=== PATIENT | male | born 1950 | race Caucasian/White ===

== ENCOUNTER 2019-02-07 17:48 | Inpatient (IN) | payer BC, OTHER ==
[~2019-02-07] VITALS: Ht 185.4 cm; Wt 79.8 kg
--- NOTE | 2019-02-07 17:48 | NUR ---
PT BIB [facility], SYNCOPAL EPISODE WHILE PLAYING ROCKETBALL AT A GYM, C/O BACK PAIN,STS, HE MAY HAVE LANDED ON HIS BACK, PT IS AAOX4, NOT IN RESPIRATORY DISTRESS, HOOKED TO MONITOR, KEPT RESTED AND COMFORTABLE, WILL CONTINUE TO MONITOR.
--- NOTE | 2019-02-07 18:00 | NUR ---
SEEN AND EXAMINED BY DR. MONIQUE.
[2019-02-07] MEDS ORDERED: FENTANYL PF 100MCG/2ML AMPUL ONE ×2 (18:18→18:43)
--- NOTE | 2019-02-07 18:25 | NUR ---
ER PHLEB AT BEDSIDE FOR BLOOD DRAW.
[2019-02-07] MEDS ORDERED: IV NS 0.9% 500 ML BAG IV ONE (18:30)
[2019-02-07] MEDS ORDERED: IV NS 0.9% 1,000 ML BAG IV ONE (18:30)
[2019-02-07] MEDS ORDERED: FENTANYL PF 100MCG/2ML AMPUL IV ONE ×2 (18:30→19:00)
[2019-02-07 18:46] LABS: BASOPHILS % (AUTO) 0.3 % (0.0-2.0); EOSINOPHILS % (AUTO) 0.2 % (0.0-6.0); HEMATOCRIT 40 % (39-51); HEMOGLOBIN 13.4 g/dL (13.5-17.5); LYMPHOCYTES # (AUTO) 0.7 /CMM (0.8-4.8); LYMPHOCYTES % (AUTO) 8.3 % (20.0-44.0); MEAN CORPUSCULAR HGB CONC 34 g/dl (31.0-36.0); MEAN CORPUSCULAR VOLUME 98 fL (80-96); MONOCYTES # (AUTO) 0.7 /CMM (0.1-1.30); MONOCYTES % (AUTO) 7.5 % (2.0-12.0); NEUTROPHILS # (AUTO) 7.3 /CMM (1.8-8.9); NEUTROPHILS % (AUTO) 83.7 % (43.0-81.0); PLATELET COUNT (AUTO) 145 /CMM (150-450); RED BLOOD CELL COUNT(AUTO) 4.07 MIL/uL (4.5-6.0); WHITE BLOOD COUNT (AUTO) 8.8 K/uL (4.3-11.0)
[2019-02-07 18:53] LABS: CALCIUM, SERUM 7.6 mg/dL (8.5-10.1); CARBON DIOXIDE 23 mmol/L (21-32); CHLORIDE 106 mmol/L (98-107); CREATININE 1.2 mg/dL (0.6-1.3); GLUCOSE 133 mg/dL (74-106); POTASSIUM 3.9 mmol/L (3.5-5.1); SODIUM SERUM 138 mmol/L (136-145); UREA NITROGEN, BLOOD 15 mg/dL (7-18)
--- NOTE | 2019-02-07 19:27 | NUR ---
REPORT GIVEN TO JENNIFER BARKSADLE FOR FERNANDO.
[2019-02-07] MEDS ORDERED: MORPHINE SULFATE INJ 2 MG/ML DISP.SYRIN IV ONE (21:00)
[2019-02-07] MEDS ORDERED: MORPHINE SULFATE INJ 4 MG/ML DISP.SYRIN ONE (21:07)
--- NOTE | 2019-02-07 21:55 | NUR ---
REPORT GIVEN TO JENNIFER LINDO FOR FERNANDO
[2019-02-07 22:15] VITALS: BP 123/57
--- NOTE | 2019-02-07 22:15 | NUR ---
admission note rn patient admitted from er .patient being admitted for syncope telemetry to dr. castillo rn 312 bed 1. patient in no apparent distress. tele applied patient is in sr. pt also had lumbar fracture per xray report. patient reports having back pain when he moves 6/10 but states tolerable when he lays still. reviewed pain managment plan with patient. bed dlw locked patient in no apparent distress. verbalized understanding to call for assistance and verbalized understanding of how to use call light. will cont to monitor.
[2019-02-07 22:35] VITALS: BP 123/57
[2019-02-07] MEDS ORDERED: MAGNESIUM HYDROXIDE 30 ML UDC PO PRN (23:00)
[2019-02-07] MEDS ORDERED: ACETAMINOPHEN 325 MG TABLET PO PRN (23:00)
[2019-02-07] MEDS ORDERED: ZOLPIDEM TARTRATE 5 MG TABLET PO PRN (23:00)
[2019-02-07] MEDS ORDERED: TEMAZEPAM 7.5 MG CAPSULE PO PRN (23:00)
[2019-02-07] MEDS ORDERED: MAG HYDROX/AL HYDROX/SIMETH 30 ML UDC PO PRN (23:00)
[2019-02-07] MEDS ORDERED: Z GUARD REMEDY 2 OZ OINT TP PRN (23:00)
[2019-02-07] MEDS: ENOXAPARIN SODIUM 40 MG/0.4 ML DISP.SYRIN SQ SCH (23:11)
--- NOTE | 2019-02-07 23:46 | NUR ---
mri screening form. attempted to perform mri screening form with patient. patient states , "I would rather do that tomorrow am when i have a more sound mind. i just want to rest right now." will follow up.
[2019-02-08 00:23] VITALS: BP 120/65
--- NOTE | 2019-02-08 01:55 | NUR ---
lumbar brace lumbar brace is not available at this time per charge nurse raghav whom states he spoke with housekeeper home. will endorse to day shift.
[2019-02-08 04:00] VITALS: BP 125/60
[2019-02-08] MEDS: HYDROCODONE/APAP 5/325MG 1 EACH TABLET PO PRN ×2 (05:17→17:40)
[2019-02-08 06:33] LABS: BASOPHILS % (AUTO) 0.1 % (0.0-2.0); HEMATOCRIT 37 % (39-51); HEMOGLOBIN 12.6 g/dL (13.5-17.5); LYMPHOCYTES # (AUTO) 0.6 /CMM (0.8-4.8); LYMPHOCYTES % (AUTO) 8.2 % (20.0-44.0); MEAN CORPUSCULAR HGB CONC 34 g/dl (31.0-36.0); MEAN CORPUSCULAR VOLUME 96 fL (80-96); MONOCYTES # (AUTO) 0.7 /CMM (0.1-1.30); MONOCYTES % (AUTO) 9.6 % (2.0-12.0); NEUTROPHILS # (AUTO) 6.2 /CMM (1.8-8.9); NEUTROPHILS % (AUTO) 82.1 % (43.0-81.0); PLATELET COUNT (AUTO) 133 /CMM (150-450); RED BLOOD CELL COUNT(AUTO) 3.87 MIL/uL (4.5-6.0); WHITE BLOOD COUNT (AUTO) 7.5 K/uL (4.3-11.0)
--- NOTE | 2019-02-08 06:44 | NUR ---
TREATMENT PLANT MECHANIC CLOSING NOTES PT REMAINS IN BED, SLEEPING INTERMITANTLY. PT ON RA WITH NO RESPIRATORY DISTRESS NOTED DENIES SOB. ON TELEMONITORING WITH SR ON MONITOR.PATIENT LYING ON BACK WITH BED FLAT. REPORTS HE IS SEMI COMFORTABLE. REVIEWED POC PATIENT TO BE FITTED WITH LUMBAR BRACE TODAY WILL ENDORSE TO NEXT SHIFT.IV HEPLOCKED TO LEFT WRIST FLUSHES NO S/S OF COMPLICATIONS. PT USING URINAL WITH BARBARA URNINE PRODUCTION. PT'S BED KEPT IN LOWEST, LOCKED POSITION WITH SR X3. CALL LIGHT IN REACH.
[2019-02-08 06:51] LABS: ALBUMIN 2.9 g/dL (3.4-5.0); CALCIUM, SERUM 7.8 mg/dL (8.5-10.1); CREATININE 1.1 mg/dL (0.6-1.3); MAGNESIUM 1.7 mg/dL (1.8-2.4); PHOSPHORUS 2.9 mg/dL (2.5-4.9); POTASSIUM 4.3 mmol/L (3.5-5.1); TOTAL PROTEIN, SERUM 5.7 g/dL (6.4-8.2)
--- NOTE | 2019-02-08 07:28 | NUR ---
SPOOLER RUBBER STRAND OPENING NOTES Patient received on room air, no sob noted. Patient denies pain at this time. Patient remains a/o x4. Resting comfortably. Bed at the lowest setting, call light within reach.
[2019-02-08] MEDS: Magnesium 1GM/D5W 100ML PREMIX 100 ML IV SCH ×2 (07:55→08:54)
[2019-02-08 08:00] VITALS: BP 119/60
[2019-02-08] MEDS: ENOXAPARIN SODIUM 40 MG/0.4 ML DISP.SYRIN SQ SCH (10:45)
[2019-02-08 12:00] VITALS: BP 130/70
[2019-02-08 16:00] VITALS: BP 117/73
[2019-02-08] MEDS: MORPHINE SULFATE INJ 2 MG/ML DISP.SYRIN IV PRN (16:18)
[2019-02-08] MEDS: ONDANSETRON HCL/PF 4 MG/2 ML VIAL IVP PRN (16:19)
[2019-02-08] MEDS ORDERED: HEPARIN SODIUM, PORCINE 5000 UNITS/1 ML VIAL IV ONE (17:30)
[2019-02-08] MEDS: HEPARIN INFUSION/D5W 500 ML IV PRN (18:18)
--- NOTE | 2019-02-08 18:34 | NUR ---
AERIAL APPLICATOR PILOT CLOSING NOTES Patient remains on room air, no sob noted. Patient states that his pain is controlled with norco, and morphine. Patient is currently on a heparin drip that started at 1825, PTT to be redrawn at 0025. PTT ordered for 0025. Patient is on 1450 units/kg that equates to 29 mL per hour. Calculations done with charge nurse, co signed the medications with the charge nurse as well. Left wrist 18 gauge remains patent, unobstructed. Bed at the lowest setting, call light within reach.
--- NOTE | 2019-02-08 19:21 | NUR ---
RN NOTES: RECEIVED ENDORSEMENT FROM , PATIENT IS LYING COMFORTABLY IN BED, A/O4, COOPERATIVE AND VERY PLEASANT PERSONALITY, CONTINENT B/B, USING THE URINAL, ABLE TO MAKE NEEDS KNOWN. IV CANNULA INTACT IN LW GAUGE#18, HEPARIN INFUSION ONGOING 1450 UNIT/KG AT 29 ML/HR VIA INFUSION PUMP, DUE FOR PT/INR AT 0025,ON CLOSE WATCH AND OBSERVE FOR SIGN OF BLEEDING,PER ENDORSEMENT HE WAS SUPPOSE TO HAVE CT ANGIO TODAY AND HE REFUSED,BUT HE AGREED TO SIGN THE CONSENT AND DO IT FOR TOMORROW 02/09/19,HE RECEIVED HIS NORCO NO PAIN OR DISCOMFORT UPON CHANGE OF SHIFT, PER ENDORSEMENT NEED TO F/U WITH DR. SCHWARTZ FOR ANY FURTHER INSTRUCTION FOR CT ANGIO TOMORROW. HE IS ALSO FOR MRI LOWER SPINE W/O CONTRAST.AWAITING TO BE SEEN BY NEUROLOGIST TODAY, SO THAT THEY WILL BE ABLE TO DETERMINE IF PATIENT NEEDS TO USE LUMBAR BRACE, AFTER NEURO CONSULT, PATIENT SHOULD BE REFERRED TO PT TO DETERMINE THE MEASUREMENT OF THE BRACE AND ONCE EVERYTHING WILL BE FINALIZE COMPANY AND NUMBER WAS PROVIDED TO ORDER THE LUMBAR BRACE. KEPT ON CLOSE WATCH, FALL,SAFETY,CAREFUL HANDLING AND ASPIRATION PRECAUTION OBSERVED AT ALL TIMES. Addendum: 02/08/19 at 2319 by PRAVIN TORRES RN ADDITIONAL NOTES: ON TELE MONITOR [id number].
[2019-02-08 20:00] VITALS: BP 134/68
--- NOTE | 2019-02-08 20:01 | NUR ---
RN NOTES: ENDORSED TO RINA FOR CONTINUITY OF CARE, NO BLEEDING NOTED,KEPT ON CLOSE VISUAL CHECK,BED LOW AND LOCKED, CALL LIGHT WITHIN EASY REACH, SIDE RAILS UP X 2.KEPT COMFORTABLE IN BED.
[2019-02-09] VITALS: BP 146/72
[2019-02-09 06:08] VITALS: BP 146/79
[2019-02-09 06:37] LABS: BASOPHILS % (AUTO) 0.1 % (0.0-2.0); EOSINOPHILS % (AUTO) 0.1 % (0.0-6.0); HEMATOCRIT 41 % (39-51); HEMOGLOBIN 13.9 g/dL (13.5-17.5); LYMPHOCYTES # (AUTO) 0.4 /CMM (0.8-4.8); LYMPHOCYTES % (AUTO) 5.4 % (20.0-44.0); MEAN CORPUSCULAR HGB CONC 34 g/dl (31.0-36.0); MEAN CORPUSCULAR VOLUME 95 fL (80-96); MONOCYTES # (AUTO) 0.6 /CMM (0.1-1.30); MONOCYTES % (AUTO) 7.4 % (2.0-12.0); NEUTROPHILS # (AUTO) 6.9 /CMM (1.8-8.9); PLATELET COUNT (AUTO) 121 /CMM (150-450); RED BLOOD CELL COUNT(AUTO) 4.26 MIL/uL (4.5-6.0); WHITE BLOOD COUNT (AUTO) 7.9 K/uL (4.3-11.0)
[2019-02-09 06:43] LABS: CALCIUM, SERUM 7.7 mg/dL (8.5-10.1); CREATININE 0.9 mg/dL (0.6-1.3); MAGNESIUM 1.9 mg/dL (1.8-2.4); PHOSPHORUS 2.4 mg/dL (2.5-4.9); POTASSIUM 3.7 mmol/L (3.5-5.1)
[2019-02-09 08:00] VITALS: BP 126/76
--- NOTE | 2019-02-09 08:00 | NUR ---
RN NOTES RECEIVED PATIENT IN THE BED SLEEPING. NO ACUTE RESPIRATORY DISTRESS, PATIENT AROUSE WHEN TOUCHED OR CALLED NAME. V/S STABLE. INFUSING HEPARIN RATE 1450 AT THIS TIME. WAS COMPLAINING OF PAIN ON LOWER BACK, ENCOURAGED TO EXPRESS FEELINGS AND CONCERNS, NEEDS ATTENDED AND ANTICIPATED. CALL LIGHT WITHIN TO REACH. CONTINUED MONITORING.
[2019-02-09] MEDS: ONDANSETRON HCL/PF 4 MG/2 ML VIAL IVP PRN ×2 (08:20→15:27)
[2019-02-09] MEDS: HYDROCODONE/APAP 5/325MG 1 EACH TABLET PO PRN (08:28)
--- NOTE | 2019-02-09 08:28 | NUR ---
rn notes administered narco 5/325 mg po prn for lower back pain, 03/23, and Zofran 4 mg/ml iv push for nausea, v/s taken bp 126//76, p-76, continued monitoring.
--- NOTE | 2019-02-09 08:38 | NUR ---
rn notes per produce wrapper Dr. Saucedo transfer patient [place] [facility] [place]. Patient sign consent form for CT of pulmonary angiogram.
--- NOTE | 2019-02-09 10:00 | NUR ---
RN NOTES PATIENT TUBE FILLER FOR CT PULMONARY ANGIOGRAM, PUT #18 GAUGE IV ACCESS ON RIGHT AC AREA.
[2019-02-09] MEDS ORDERED: CT SWABBABLE VALVE TRANS SET 1 EA INFUS.SET MC ONE (10:28)
[2019-02-09] MEDS ORDERED: IOHEXOL-350 100 ML VIAL IV ONE (10:28)
[2019-02-09] MEDS ORDERED: IV NS 0.9% 250 ML IV ONE (10:29)
[2019-02-09] MEDS ORDERED: K PHOS NEUTRAL 250 MG TABLET PO ONE (11:00)
--- NOTE | 2019-02-09 11:00 | NUR ---
RN NOTES PATIENT BACK FROM CT ANGIOGRAM. MEDICATION WERE ADMINISTERED FOR PAIN AND NAUSEA EFFECTIVE. PATIENT USING URINAL. CONTINUED MONITORING.
[2019-02-09] MEDS: HEPARIN INFUSION/D5W 500 ML IV PRN (13:22)
[2019-02-09] MEDS: MORPHINE SULFATE INJ 2 MG/ML DISP.SYRIN IV PRN (13:25)
--- NOTE | 2019-02-09 13:25 | NUR ---
RN NOTES ADMINISTERED MORPHINE SULFATE 2 MG/ML IV PUSH FOR LOWER BACK PAIN 03/23 PER PATIENT REQUEST, V/S TAKEN BP -[phone], P-78. ALSO PATIENT GOING TO [facility].
--- NOTE | 2019-02-09 15:27 | NUR ---
RN NOTES ADMINISTERED ZOFRAN 4 MG/ML FOR NAUSEA.
--- NOTE | 2019-02-09 15:57 | NUR ---
RN NOTES ORDERED PT/PTT STAT FOR FOLLOW HEPARIN DRIP PRIOR DISCHARGE.
[2019-02-09 16:00] VITALS: BP 147/74
--- NOTE | 2019-02-09 16:15 | NUR ---
RN NOTES PATIENT DISCHARGE AT THIS TIME AND TRANSFERRED TO [facility]UTE [facility] FOR FOLLOW UP. PATIENT STABLE NO ACUTE RESPIRATORY DISTRESS. MEDICATION WERE ADMINISTERED FOR PAIN AND NAUSEA AFFECTIVE., V/S STABLE MED RECONCILIATION AND DISCHARGE ORDER REVIEWED AND EXPLAINED TO PATIENT AND RN [facility] [place]. RN VERBALIZED UNDERSTANDING. PATIENT TRANSFERRED WITH HEPARIN DRIP. BELONGING WITH THE PATIENT, PATIENT SIGN PAPERWORK. PATIENT REFUSED TO CALL AND NOTIFY FAMILY HE WILL TAKE CARE OF IT. ALSO REPORT GIVEN EMT PERSONAL RN. PATIENT TYRE BUILDER BY AMBULANCE.
--- NOTE | 2019-02-09 17:18 | NUR ---
RN NOTES DOUBLE CHECKED PTT LEVEL , AND NOTIFIED RN NAME ANESTHESIA AT [facility].
== END 2019-02-09 16:20 | disposition short-term general hospital (02) | DRG 641 ==
LOC: ER 17:49 → TELE 21:03 → MED 02-09 08:45
PROVIDERS: ADMIT Internal Medicine; ATTEND Registered Nurse
DX: E86.0 Dehydration (principal); M48.56XA Collapsed vertebra, not elsewhere classified, lumbar region, initial encounter for fracture; W18.30XA Fall on same level, unspecified, initial encounter; Y92.39 Other specified sports and athletic area as the place of occurrence of the external cause; D64.9 Anemia, unspecified; Z86.718 Personal history of other venous thrombosis and embolism; M85.80 Other specified disorders of bone density and structure, unspecified site; F12.90 Cannabis use, unspecified, uncomplicated; E83.42 Hypomagnesemia; D69.6 Thrombocytopenia, unspecified; M47.816 Spondylosis without myelopathy or radiculopathy, lumbar region; M43.16 Spondylolisthesis, lumbar region; E88.09 Other disorders of plasma-protein metabolism, not elsewhere classified; D35.02 Benign neoplasm of left adrenal gland
CPT/HCPCS: 36415; 70450-TC; 71045-TC; 72131-TC; 72158-TC; 80048-TC; 80053-TC; 80061-TC; 82040-TC; 83735-TC; 84100-TC; 84484-TC; 85025-TC; 85378-TC; 85610-TC; 85730-TC; 87081-TC; 93307-TC; 93880-TC; 93970-TC; G0378; J1644; J1650; J2270; J2405; J3010; J3475; J7030; J7040; J7050; Q9967